=== PATIENT | male | born 1975 | race Caucasian/White ===

== ENCOUNTER 2019-12-23 10:01 | Emergency (ER) | payer OTHER ==
[~2019-12-23] VITALS: Ht 190.5 cm; Wt 99.8 kg
== END 2019-12-23 13:13 | disposition home or self-care (01) ==
LOC: ER 10:01
DX: N28.89 Other specified disorders of kidney and ureter (principal); R10.31 Right lower quadrant pain

== ENCOUNTER 2021-09-02 17:39 | Emergency (ER) | payer OTHER ==
[~2021-09-02] VITALS: Ht 190.5 cm; Wt 99.8 kg
[2021-09-02] MEDS ORDERED: PEPCID20 MG PO (18:02)
== END 2021-09-02 22:27 | disposition home or self-care (01) ==
LOC: ER 17:39
DX: R10.9 Unspecified abdominal pain (principal)